=== PATIENT | male | born 1935 | race Hispanic/Latino ===

== ENCOUNTER 2020-11-14 06:12 | Day surgery (SDC) | payer OTHER, MEDICARE ==
[2020-11-10 11:34] LABS: BASOPHILS % (AUTO) 0.7 % (0.0-5.0); EOSINOPHILS % (AUTO) 2.5 % (0.0-8.0); HEMATOCRIT 36.3 % (42-54); MEAN CORPUSCULAR HEMOGLOBIN 31.3 pg (27.0-33.0); MEAN CORPUSCULAR HGB CONC 32.8 g/dL (32.0-36.0); MEAN CORPUSCULAR VOLUME 95.5 fL (79-99); MONOCYTES % (AUTO) 7.6 % (3.0-13.0); PLATELET COUNT (AUTO) 123 K/uL (130-400); RED CELL DISTRIBUTION WIDTH 13.6 % (11.0-15.5)
[2020-11-10 11:35] LABS: APPEARANCE,URINE Clear (CLEAR); BILIRUBIN,URINE Small (NEGATIVE); COLOR,URINE Dark Yellow (YELLOW); GLUCOSE, URINE (UA) Negative (NEGATIVE); KETONES,URINE Trace mg/dL (NEGATIVE); LEUKOCYTE ESTERASE ,URINE Trace (NEGATIVE); NITRATE,URINE Negative (NEGATIVE); OCCULT BLOOD,URINE Negative (NEGATIVE); PROTEIN,URINE POS 1+ mg/dL (NEGATIVE)
[2020-11-10 11:43] LABS: CREATININE 2.2 mg/dL (0.5-1.5); POTASSIUM 5.8 mmol/L (3.5-5.1)
[2020-11-10 11:46] LABS: BACTERIA,URINE None Seen /HPF (None Seen); COARSE GRANULAR CASTS,URINE 0-2 /LPF (None Seen); RBC,URINE 0-1 /HPF (0-1); SQUAMOUS EPITHELIAL CELL,UR 0-2 /HPF (0-2); WBC,URINE 0-1 /HPF (0-1)
[2020-11-10 11:48] LABS: INR 1.01 (0.85-1.15)
[2020-11-10 11:49] LABS: PARTIAL THROMBOPLASTIN TIME 28.2 SEC (26.3-35.5)
[~2020-11-14] VITALS: Ht 167.6 cm; Wt 82.1 kg
[2020-11-14] MEDS ORDERED: 0.9%NACL 1000ML 1,000 ML IV ONE (06:26)
[2020-11-14 06:30] VITALS: BP_SYST 171; BP_SYST 71; BP_DIAS 50
[2020-11-14 07:09] LABS: CREATININE 2.3 mg/dL (0.5-1.5); POTASSIUM 5.8 mmol/L (3.5-5.1)
[2020-11-14] MEDS ORDERED: FUROSEMIDE 20MG VIAL ONE (07:24)
[2020-11-14] MEDS ORDERED: PIOG30TA70 PO (07:55)
[2020-11-14] MEDS ORDERED: ISOS30TA92 PO (07:55)
[2020-11-14] MEDS ORDERED: SIMV-43 PO (07:55)
[2020-11-14] MEDS ORDERED: CLOP75TA32 PO (07:55)
[2020-11-14] MEDS ORDERED: FURO20TA4 PO (07:55)
[2020-11-14] MEDS ORDERED: LISI2.5T2 PO (07:55)
[2020-11-14] MEDS ORDERED: CILO100T PO (07:55)
[2020-11-14] MEDS ORDERED: AMLO-258 PO (07:55)
[2020-11-14] MEDS ORDERED: METF-444 PO (07:55)
[2020-11-14 08:15] VITALS: BP 93/58
== END 2020-11-14 09:20 | disposition home or self-care (01) ==
LOC: DAH 06:12
PROVIDERS: ATTEND Internal Medicine Cardiovascular Disease
DX: R06.00 Dyspnea, unspecified (principal); I25.10 Atherosclerotic heart disease of native coronary artery without angina pectoris; E11.51 Type 2 diabetes mellitus with diabetic peripheral angiopathy without gangrene; I70.219 Atherosclerosis of native arteries of extremities with intermittent claudication, unspecified extremity; N18.4 Chronic kidney disease, stage 4 (severe); R53.83 Other fatigue; R19.7 Diarrhea, unspecified; Z53.8 Procedure and treatment not carried out for other reasons; Z79.01 Long term (current) use of anticoagulants; Z87.891 Personal history of nicotine dependence; Z72.89 Other problems related to lifestyle
CPT/HCPCS: 36415 ×2; 71045; 80048 ×2; 81001; 85025; 85610; 85730; 87635; 93005 ×2; 96360; 96374; A4215; A4216; A4221; A4222; A4223 ×3; A4606; A4663; J1940; J7030